=== PATIENT | female | born 1970 | race Caucasian/White ===

== ENCOUNTER 2017-04-25 13:22 | Emergency (ER) | payer SELFPAY ==
--- NOTE | 2017-04-25 15:25 | EDM.PDOC ---
ED HPI GENERAL MEDICAL PROBLEM - General Chief Complaint: Gastrointestinal Problem Stated Complaint: UNABLE TO USE THE RESTROOM Time Seen by Provider: 04/25/17 15:10 Source of Information: Reports: Patient, Family History Limitations: Reports: No Limitations - History of Present Illness INITIAL COMMENTS - FREE TEXT/NARRATIVE: HISTORY AND PHYSICAL: History of present illness: [Patient comes to the emergency room accompanied by her Sami-speaking daughter. Patient is primarily Bengali-speaking. Patient is scheduled for colonoscopy tomorrow, and started her bowel prep at 10 AM this morning. She started to feel poorly after taking the first dose of bowel prep, felt weak and had some abdominal cramping. She has only had a normal sized bowel movement and does not feel emptied out. She has a history of constipation and tomorrow's colonoscopy is screening, per daughter's report. No fever or chills nausea or vomiting. She has a history of heartburn and is also scheduled for a EGD tomorrow.] Review of systems: As per history of present illness and below otherwise all systems reviewed and negative. Past medical history: As per history of present illness and as reviewed below otherwise noncontributory. Surgical history: As per history of present illness and as reviewed below otherwise noncontributory. Social history: No reported history of drug or alcohol abuse. Family history: As per history of present illness and as reviewed below otherwise noncontributory. Physical exam: HEENT: Atraumatic, normocephalic. Oral mucous membranes are pink and moist. Lungs: Clear to auscultation, breath sounds equal bilaterally. Heart: S1S2, regular rate and rhythm. Abdomen: Bowel sounds are very quiet throughout. Abdomen is soft and nondistended. She is tender over the mid epigastric area. No masses guarding or rebound. Pelvis: Stable nontender. Genitourinary: Deferred. Rectal: Deferred. Extremities: Atraumatic, no swelling or cyanosis to feet or lower legs. Radial pulse 2+ and strong. Neurovascular unremarkable. Neuro: Awake, alert, oriented. Motor and sensory unremarkable throughout. Exam nonfocal. Diagnostics: [CBC, CMP, abdominal 2 view x-ray] Impression: [Abdominal pain] Plan: [Discussed with patient and her daughter that her lab results and x-ray are within normal limits. No obstruction or constipation is appreciated. The abdominal discomfort she is experiencing is normal with using a bowel prep. Recommend she continue to push fluids continue the bowel prep and follow-up as scheduled for her colonoscopy in the morning. She is in agreement with today's plan all questions are answered and concerns are addressed. ] Definitive disposition and diagnosis as appropriate pending reevaluation and review of above. Abdomen Pain Score (Numeric/FACES): 3 - Related Data Allergies Allergy/AdvReac Type Severity Reaction Status Date / Time No Known Allergies Allergy Verified 04/25/17 14:07 Home Meds: Home Meds Esomeprazole Magnesium [Nexium] 40 mg PO DAILY 04/21/17 [History] Loratadine [Claritin] 10 mg PO ASDIRECTED PRN 04/21/17 [History] Ranitidine HCl 150 mg PO BEDTIME 04/21/17 [History] Past Medical History HEENT History: Reports: Allergic Rhinitis Gastrointestinal History: Reports: GERD Genitourinary History: Reports: UTI, Recurrent LVN HOME HEALTH History: Reports: Endocrine/Metabolic History: Reports: Obesity/BMI 30+ - Past Surgical History Head Surgeries/Procedures: Reports: None Female Surgical History: Reports: Tubal Ligation Social & Family History - Tobacco Use Smoking Status *Q: Never Smoker Second Hand Smoke Exposure: No - Caffeine Use Caffeine Use: Reports: Soda, Tea - Recreational Drug Use Recreational Drug Use: No ED ROS GENERAL - Review of Systems Review Of Systems: ROS reveals no pertinent complaints other than HPI. ED EXAM, GI/ABD - Physical Exam Exam: See Below Course - Vital Signs Last Recorded V/S: Last Vital Signs Temp 98.2 F 04/25/17 14:03 Pulse 76 04/25/17 14:03 Resp 18 04/25/17 14:03 BP 130/80 04/25/17 14:03 Pulse Ox 98 04/25/17 14:03 - Orders/Labs/Meds Labs: Laboratory Tests 04/25/17 04/25/17 Range/Units 15:27 15:27 WBC 11.95 H (4.0-11.0) K/uL RBC 4.95 (4.30-5.90) M/uL Hgb 14.7 (12.0-16.0) g/dL Hct 43.3 (36.0-46.0) % MCV 87.5 (80.0-98.0) fL MCH 29.7 (27.0-32.0) pg MCHC 33.9 (31.0-37.0) g/dL RDW Std Deviation 40.7 (28.0-62.0) fl RDW Coeff of Zach 13 (11.0-15.0) % Plt Count 342 (150-400) K/uL MPV 9.20 (7.40-12.00) fL Neut % (Auto) 77.0 (48.0-80.0) % Lymph % (Auto) 16.2 (16.0-40.0) % Lipscomb % (Auto) 6.3 (0.0-15.0) % Eos % (Auto) 0.3 (0.0-7.0) % Baso % (Auto) 0.2 (0.0-1.5) % Neut # (Auto) 9.2 H (1.4-5.7) K/uL Lymph # (Auto) 1.9 (0.6-2.4) K/uL Lipscomb # (Auto) 0.8 (0.0-0.8) K/uL Eos # (Auto) 0.0 (0.0-0.7) K/uL Baso # (Auto) 0.0 (0.0-0.1) K/uL Nucleated RBC % 0.0 /100WBC Nucleated RBCs # 0 K/uL Sodium 140 (136-146) mmol/L Potassium 3.9 (3.5-5.1) mmol/L Chloride 109 (98-110) mmol/L Carbon Dioxide 22 (21-31) mmol/L BUN 11 (6.0-23.0) mg/dL Creatinine 0.7 (0.6-1.5) mg/dL Est Cr Clr Drug Dosing 72.13 mL/min Estimated GFR (MDRD) > 60.0 ml/min Glucose 123 H (60-110) mg/dL Calcium 9.5 (8.8-10.8) mg/dL Total Bilirubin 0.6 (0.1-1.5) mg/dL AST 19 (5-40) IU/L ALT 20 (8-54) IU/L Alkaline Phosphatase 74 (40-150) Total Protein 8.4 H (6.0-8.0) g/dL Albumin 4.4 (3.5-5.0) g/dL Globulin 4.0 H (2.0-3.5) g/dL Albumin/Globulin Ratio 1.1 L (1.3-2.8) Departure - Departure Time of Disposition: 17:00 Disposition: Home, Self-Care 01 Condition: Good Clinical Impression: Abdominal pain - Discharge Information Referrals: PCP,Unknown [Primary Care Provider] - Forms: ED Department Discharge Additional Instructions: The following information is given to patients seen in the emergency department who are being discharged to home. This information is to outline your options for follow-up care. We provide all patients seen in our emergency department with a follow-up referral. The need for follow-up, as well as the timing and circumstances, are variable depending upon the specifics of your emergency department visit. If you don't have a primary care physician on staff, we will provide you with a referral. We always advise you to contact your personal physician following an emergency department visit to inform them of the circumstance of the visit and for follow-up with them and/or the need for any referrals to a consulting specialist. The emergency department will also refer you to a specialist when appropriate. This referral assures that you have the opportunity for follow-up care with a specialist. All of these measure are taken in an effort to provide you with optimal care, which includes your follow-up. Under all circumstances we always encourage you to contact your private physician who remains a resource for coordinating your care. When calling for follow-up care, please make the office aware that this follow-up is from your recent emergency room visit. If for any reason you are refused follow-up, please contact the [facility] emergency department at and asked to speak to the emergency department charge nurse. Your x-ray shows no obstruction or constipation. The abdominal discomfort that you're feeling is normal with bowel prep. Encourage her to continue the bowel prep and proceed with her colonoscopy tomorrow morning. Push fluids and follow bowel prep instructions. Return to ER as needed as discussed.
[2017-04-25 16:02] LABS: CHLORIDE,CL 109 mmol/L (98-110); SODIUM,NA 140 mmol/L (136-146)
--- NOTE | 2017-04-25 16:53 | CR ---
EXAMINATION: Abdomen HISTORY: Pain COMPARISON: None TECHNIQUE: AP and upright FINDINGS: No free air under the diaphragm. There is a paucity of bowel gas without evidence of obstru ction. No abnormal calcifications project over the kidneys. No organomegaly. Visualized osseous struc tures appear normal. Probable left-sided phleboliths. IMPRESSION: No acute findings within the abdomen.
== END 2017-04-25 17:37 | disposition home or self-care (01) ==
LOC: MW.ED 13:22
DX: R10.9 Unspecified abdominal pain (principal); K21.9 Gastro-esophageal reflux disease without esophagitis; Z79.899 Other long term (current) drug therapy
CPT/HCPCS: 36415; 74019; 74019-26; 80053; 85025; 99282; 99284